=== PATIENT | female | born 1980 | race Two or more races ===

== ENCOUNTER 2020-08-30 18:34 | Emergency (ER) | payer MEDICAID ==
[~2020-08-30] VITALS: Ht 165.1 cm; Wt 68.0 kg
[2020-08-30] MEDS ORDERED: SODIUM CHLORIDE 0.9% 1,000 ML IV ONE (19:00)
[2020-08-30] MEDS ORDERED: NALOXONE HCL 1 MG/ML 2ML VIAL IV ONE (19:00)
[2020-08-30] MEDS ORDERED: ACETAMINOPHEN 325MG TABLET PO ONE (19:00)
[2020-08-30] MEDS ORDERED: NALOXONE HCL 0.4 MG/ML 1ML VIAL IV ONE (19:00)
[2020-08-30 19:28] LABS: BASOPHILS % 0.2 % (0.0-2.0); EOSINOPHILS % 0.2 % (0.0-5.0); HEMATOCRIT. 35.2 % (36.0-48.0); HEMOGLOBIN. 11.8 g/dL (12.0-16.0); LYMPHOCYTES % 27.9 % (20.0-50.0); MEAN CORPUSCULAR HEMOGLOBIN 29.4 pg (28.0-32.0); MEAN CORPUSCULAR VOLUME 87.4 fL (81.0-99.0); MEAN PLATELET VOLUME 6.7 fl (7.4-10.4); MONOCYTES % 5.1 % (2.0-8.0); NEUTROPHILS % 66.6 % (40.0-76.0); PLATELET 471 x1000/uL (130-400); RED BLOOD CELL COUNT 4.04 mill/uL (4.2-5.4); RED CELL DISTRIBUTION WIDTH 15.4 % (11.6-14.6)
[2020-08-30 19:31] LABS: CHLORIDE 110 mEq/L (98-107)
[2020-08-30 19:36] LABS: ETHANOL BLOOD < 10 mg/dL
[2020-08-30 19:42] LABS: CLARITY URINE CLOUDY (CLEAR); COLOR URINE YELLOW (YELLOW); KETONES URINE NEGATIVE (NEGATIVE); LEUKOCYTE ESTERASE URINE 1+ (NEGATIVE); NITRITE URINE NEGATIVE (NEGATIVE); OCCULT BLOOD URINE NEGATIVE (NEGATIVE); PH URINE 5.5 (4.5-8.0); PROTEIN URINE 1+ (NEGATIVE); SPECIFIC GRAVITY URINE 1.021 (1.005-1.030); UROBILINOGEN URINE 0.2 E.U./dL (0.2-1.0)
[2020-08-30] MEDS ORDERED: NALO4SPR BOTHNSTRLS (19:54)
[2020-08-30 19:57] LABS: *BARBITURATES SCREEN URINE NEGATIVE (NEGATIVE); *COCAINE SCREEN URINE NEGATIVE (NEGATIVE); CANNABINOID URINE SCREEN NEGATIVE (NEGATIVE); METHADONE URINE SCREEN NEGATIVE (NEGATIVE); OPIATES URINE SCREEN NEGATIVE (NEGATIVE); PHENCYCLIDINE URINE SCREEN NEGATIVE (NEGATIVE)
[2020-08-30 20:06] LABS: *AMPHETAMINES SCREEN URINE PRESUMTIVE POSITIVE (NEGATIVE); *BENZODIAZEPINES SCREEN URINE PRESUMTIVE POSITIVE (NEGATIVE)
[2020-08-30] MEDS ORDERED: MIRTAZAPINE 30MG TABLET PO SCH (21:00)
[2020-08-30] MEDS ORDERED: MIRTAZAPINE 15MG TABLET PO SCH (21:00)
[2020-08-30] MEDS ORDERED: ZIPRASIDONE MESYLATE 20MG/VIAL IM ONE (21:45)
[2020-08-30] MEDS ORDERED: LORAZEPAM 2MG/ML CPJ IM ONE (23:00)
[2020-08-31] MEDS ORDERED: HALOPERIDOL LACTATE 5MG/ML VIAL IM ONE (06:30)
[2020-08-31] MEDS ORDERED: DIPHENHYDRAMINE 50MG/ML VIAL IV ONE (06:30)
[2020-08-31] MEDS ORDERED: LORAZEPAM 2MG/ML CPJ IM PRN (06:30)
[2020-08-31 09:05] VITALS: BP 132/80
== END 2020-08-31 09:08 | disposition home or self-care (01) ==
LOC: ER 18:34
DX: T40.2X2A Poisoning by other opioids, intentional self-harm, initial encounter (principal); F15.229 Other stimulant dependence with intoxication, unspecified; R45.1 Restlessness and agitation; F33.3 Major depressive disorder, recurrent, severe with psychotic symptoms; Y92.89 Other specified places as the place of occurrence of the external cause; F16.10 Hallucinogen abuse, uncomplicated; F12.10 Cannabis abuse, uncomplicated; F19.20 Other psychoactive substance dependence, uncomplicated; Z78.1 Physical restraint status; F43.12 Post-traumatic stress disorder, chronic; Z73.6 Limitation of activities due to disability; Z91.410 Personal history of adult physical and sexual abuse; Z59.0 Homelessness
CPT/HCPCS: 36415; 80053; 80305; 80320; 81003; 81025; 85025; 93005; 96372; 96374; 99285; J1200; J1630; J2060; J3486; J7030; G0480

== ENCOUNTER 2020-09-28 13:37 | Emergency (ER) | payer MEDICAID, OTHER ==
[~2020-09-28] VITALS: Ht 165.1 cm; Wt 68.0 kg
[~2020-09-28 13:37] MED LIST: NALO4SPR BOTHNSTRLS
[2020-09-28] MEDS: FAMOTIDINE 20MG/2ML VIAL IV STA (14:37)
[2020-09-28] MEDS: LORAZEPAM 2MG/ML CPJ IV ONE ×2 (14:37→18:20)
[2020-09-28] MEDS: SODIUM CHLORIDE 0.9% 1,000 ML IV ONE (14:38)
[2020-09-28 15:00] LABS: CLARITY URINE TURBID (CLEAR); COLOR URINE YELLOW (YELLOW); KETONES URINE 2+ (NEGATIVE); LEUKOCYTE ESTERASE URINE 3+ (NEGATIVE); NITRITE URINE NEGATIVE (NEGATIVE); OCCULT BLOOD URINE 1+ (NEGATIVE); PH URINE >=9.0 (4.5-8.0); PROTEIN URINE 2+ (NEGATIVE); SPECIFIC GRAVITY URINE 1.019 (1.005-1.030)
[2020-09-28 15:22] LABS: HEMATOCRIT. 32.2 % (36.0-48.0); HEMOGLOBIN. 11.3 g/dL (12.0-16.0); MEAN CORPUSCULAR HEMOGLOBIN 30.3 pg (28.0-32.0); MEAN CORPUSCULAR VOLUME 86.4 fL (81.0-99.0); MEAN PLATELET VOLUME 7.1 fl (7.4-10.4); PLATELET 370 x1000/uL (130-400); RED BLOOD CELL COUNT 3.73 mill/uL (4.2-5.4); RED CELL DISTRIBUTION WIDTH 15.1 % (11.6-14.6)
[2020-09-28 15:28] LABS: CHLORIDE 99 mEq/L (98-107)
[2020-09-28 15:31] LABS: *AMPHETAMINES SCREEN URINE NEGATIVE (NEGATIVE); *BENZODIAZEPINES SCREEN URINE NEGATIVE (NEGATIVE); *COCAINE SCREEN URINE NEGATIVE (NEGATIVE); METHADONE URINE SCREEN NEGATIVE (NEGATIVE)
[2020-09-28 15:32] LABS: CANNABINOID URINE SCREEN NEGATIVE (NEGATIVE); OPIATES URINE SCREEN NEGATIVE (NEGATIVE)
[2020-09-28 15:36] LABS: ETHANOL BLOOD < 10 mg/dL
[2020-09-28 15:49] LABS: *BARBITURATES SCREEN URINE PRESUMTIVE POSITIVE (NEGATIVE); PHENCYCLIDINE URINE SCREEN PRESUMTIVE POSITIVE (NEGATIVE)
[2020-09-28 15:49] LABS: HCG SCREEN NEGATIVE
[2020-09-28 16:08] LABS: PLATELET ESTIMATE NORMAL
[2020-09-28] MEDS: PIPERACILLIN/TAZ 3.375G PREMIX 50 ML IV ONE (17:10)
[2020-09-28] MEDS: SODIUM CHLORIDE 0.9% 1000ML BAG (SEPSIS BOLUS) IV ONE (17:11)
[2020-09-28] MEDS: MORPHINE SULFATE 4 MG/ML CPJ (NOT FOR IM USE) IV ONE (18:19)
[2020-09-28] MEDS: ONDANSETRON HCL 4MG/2ML INJ IV ONE (18:19)
[2020-09-28 20:33] VITALS: BP 119/68
== END 2020-09-28 20:35 | disposition short-term general hospital (02) ==
LOC: ER 13:50 → EDBEDREQ 17:19 → ER 20:35 → CANBEDREQ 09-29 00:41
DX: A41.9 Sepsis, unspecified organism (principal); R65.20 Severe sepsis without septic shock; K56.609 Unspecified intestinal obstruction, unspecified as to partial versus complete obstruction; K52.9 Noninfective gastroenteritis and colitis, unspecified; F16.10 Hallucinogen abuse, uncomplicated; F15.10 Other stimulant abuse, uncomplicated; F11.10 Opioid abuse, uncomplicated; F20.9 Schizophrenia, unspecified
CPT/HCPCS: 36415; 74176; 76705; 80053; 80305; 80307; 80320; 80329; 81003; 83605; 83690; 84703; 85025; 87040; 87086; 96361; 96374; 96375; 96376; 99291; J2060; J2270; J2405; J2543; J3490; J7030; Z7610; G0480

== ENCOUNTER 2020-11-02 00:48 | Emergency (ER) | payer OTHER ==
[~2020-11-02] VITALS: Ht 152.4 cm; Wt 56.0 kg
[2020-11-02] MEDS ORDERED: LORAZEPAM 2MG/ML CPJ IM ONE (01:15)
[2020-11-02] MEDS ORDERED: HALOPERIDOL LACTATE 5MG/ML VIAL IM ONE (01:15)
[2020-11-02 01:26] LABS: BASOPHILS % 0.3 % (0.0-2.0); EOSINOPHILS % 0.4 % (0.0-5.0); HEMATOCRIT. 30.7 % (36.0-48.0); HEMOGLOBIN. 10.5 g/dL (12.0-16.0); LYMPHOCYTES % 31.6 % (20.0-50.0); MEAN CORPUSCULAR HEMOGLOBIN 30.1 pg (28.0-32.0); MEAN CORPUSCULAR VOLUME 87.7 fL (81.0-99.0); MEAN PLATELET VOLUME 6.5 fl (7.4-10.4); MONOCYTES % 6.8 % (2.0-8.0); NEUTROPHILS % 60.9 % (40.0-76.0); PLATELET 348 x1000/uL (130-400)
[2020-11-02 01:35] LABS: CHLORIDE 106 mEq/L (98-107)
[2020-11-02 01:37] LABS: HCG SCREEN NEGATIVE
[2020-11-02 01:40] LABS: ETHANOL BLOOD < 10 mg/dL
[2020-11-02] MEDS ORDERED: POTASSIUM CHLORIDE 20MEQ TABLET SR PO ONE (02:15)
[2020-11-02 05:56] LABS: CLARITY URINE CLEAR (CLEAR); COLOR URINE YELLOW (YELLOW); KETONES URINE TRACE (NEGATIVE); LEUKOCYTE ESTERASE URINE 1+ (NEGATIVE); NITRITE URINE NEGATIVE (NEGATIVE); OCCULT BLOOD URINE 3+ (NEGATIVE); PH URINE 5.5 (4.5-8.0); PROTEIN URINE NEGATIVE (NEGATIVE); SPECIFIC GRAVITY URINE 1.025 (1.005-1.030)
[2020-11-02 06:14] LABS: *BARBITURATES SCREEN URINE NEGATIVE (NEGATIVE); *BENZODIAZEPINES SCREEN URINE NEGATIVE (NEGATIVE); *COCAINE SCREEN URINE NEGATIVE (NEGATIVE); METHADONE URINE SCREEN NEGATIVE (NEGATIVE); OPIATES URINE SCREEN NEGATIVE (NEGATIVE); PHENCYCLIDINE URINE SCREEN NEGATIVE (NEGATIVE)
[2020-11-02 06:19] LABS: *AMPHETAMINES SCREEN URINE PRESUMTIVE POSITIVE (NEGATIVE); CANNABINOID URINE SCREEN PRESUMTIVE POSITIVE (NEGATIVE)
[2020-11-03] MEDS ORDERED: LORAZEPAM 1MG TABLET PO ONE (11:00)
[2020-11-03 15:08] VITALS: BP 107/63
== END 2020-11-03 15:25 ==
LOC: ER 00:48
DX: R45.850 Homicidal ideations (principal); F23 Brief psychotic disorder; Z20.822 Contact with and (suspected) exposure to COVID-19
CPT/HCPCS: 36415; 80053; 80305; 80307; 80320; 80329; 81003; 84703; 85025; 93005; 96372; 99285; C9803; J1630; J2060; U0003; U0005; G0480

== ENCOUNTER 2021-07-20 18:36 | Emergency (ER) | payer OTHER ==
[~2021-07-20] VITALS: Ht 172.7 cm; Wt 68.3 kg
[2021-07-20 19:34] LABS: BASOPHILS % 0.3 % (0.0-2.0); EOSINOPHILS % 0.2 % (0.0-5.0); HEMATOCRIT. 35.2 % (36.0-48.0); HEMOGLOBIN. 11.6 g/dL (12.0-16.0); LYMPHOCYTES % 12.7 % (20.0-50.0); MEAN CORPUSCULAR HEMOGLOBIN 29.4 pg (28.0-32.0); MEAN CORPUSCULAR VOLUME 88.9 fL (81.0-99.0); MEAN PLATELET VOLUME 6.3 fl (7.4-10.4); MONOCYTES % 6.2 % (2.0-8.0); NEUTROPHILS % 80.6 % (40.0-76.0); PLATELET 581 x1000/uL (130-400); RED BLOOD CELL COUNT 3.96 mill/uL (4.2-5.4); RED CELL DISTRIBUTION WIDTH 14.1 % (11.6-14.6)
[2021-07-20 19:49] LABS: CHLORIDE 104 mEq/L (98-107)
[2021-07-20 19:54] LABS: ETHANOL BLOOD 33 mg/dL
[2021-07-20 19:55] LABS: HCG SCREEN NEGATIVE
[2021-07-20 20:33] LABS: CLARITY URINE CLOUDY (CLEAR); COLOR URINE DARK YELLOW (YELLOW); KETONES URINE 1+ (NEGATIVE); LEUKOCYTE ESTERASE URINE 1+ (NEGATIVE); NITRITE URINE POSITIVE (NEGATIVE); OCCULT BLOOD URINE 2+ (NEGATIVE); PH URINE 6.5 (4.5-8.0); PROTEIN URINE 1+ (NEGATIVE); SPECIFIC GRAVITY URINE 1.024 (1.005-1.030)
[2021-07-20 20:56] LABS: *BARBITURATES SCREEN URINE NEGATIVE (NEGATIVE); *BENZODIAZEPINES SCREEN URINE NEGATIVE (NEGATIVE); *COCAINE SCREEN URINE NEGATIVE (NEGATIVE)
[2021-07-20 20:58] LABS: METHADONE URINE SCREEN NEGATIVE (NEGATIVE); OPIATES URINE SCREEN NEGATIVE (NEGATIVE); PHENCYCLIDINE URINE SCREEN NEGATIVE (NEGATIVE)
[2021-07-20 21:08] LABS: *AMPHETAMINES SCREEN URINE PRESUMTIVE POSITIVE (NEGATIVE); CANNABINOID URINE SCREEN PRESUMTIVE POSITIVE (NEGATIVE)
[2021-07-20] MEDS ORDERED: LORAZEPAM 1MG TABLET PO ONE (21:15)
[2021-07-20] MEDS: CARBAMIDE PEROXIDE 6.5% OTIC SOLN 15ML LEFT EAR SCH (22:17)
[2021-07-20] MEDS ORDERED: CEPHALEXIN 250MG CAPSULE PO ONE (22:45)
[2021-07-20] MEDS: CLINDAMYCIN HCL 150MG CAPSULE PO SCH (23:28)
[2021-07-21] MEDS: CLINDAMYCIN HCL 150MG CAPSULE PO SCH ×3 (06:13→22:18)
[2021-07-21] MEDS: RISPERIDONE 1MG TABLET PO SCH ×2 (09:21→22:23)
[2021-07-21] MEDS: CARBAMIDE PEROXIDE 6.5% OTIC SOLN 15ML LEFT EAR SCH ×2 (09:22→17:47)
[2021-07-21] MEDS: VENLAFAXINE HCL 37.5MG SR CAPSULE 24HR PO SCH (09:31)
[2021-07-21] MEDS ORDERED: AMOXICILLIN 500 MG CAPSULE PO SCH (14:45)
[2021-07-21] MEDS ORDERED: LORAZEPAM 1MG TABLET PO ONE (14:45)
[2021-07-21] MEDS: AMOXICILLIN 500 MG CAPSULE PO SCH ×2 (15:56→23:51)
[2021-07-21] MEDS ORDERED: QUETIAPINE FUMARATE 50MG TABLET PO SCH (22:15)
[2021-07-22] MEDS: CLINDAMYCIN HCL 150MG CAPSULE PO SCH ×3 (08:55→08:59)
[2021-07-22] MEDS: CARBAMIDE PEROXIDE 6.5% OTIC SOLN 15ML LEFT EAR SCH (09:33)
[2021-07-22] MEDS: AMOXICILLIN 500 MG CAPSULE PO SCH (09:33)
[2021-07-22] MEDS: RISPERIDONE 1MG TABLET PO SCH (09:33)
[2021-07-22] MEDS: VENLAFAXINE HCL 37.5MG SR CAPSULE 24HR PO SCH (09:33)
[2021-07-22] MEDS ORDERED: LORAZEPAM 1MG TABLET PO ONE (12:30)
[2021-07-22 13:58] VITALS: BP 132/84
== END 2021-07-22 14:33 ==
LOC: ER 18:36
DX: R45.851 Suicidal ideations (principal); Z20.822 Contact with and (suspected) exposure to COVID-19; Z86.59 Personal history of other mental and behavioral disorders
CPT/HCPCS: 36415; 80053; 80305; 80307; 80320; 80329; 81003; 84703; 85025; 99285; C9803; U0003; U0005; G0480